=== PATIENT | female | born 1935 | race Caucasian/White ===

== ENCOUNTER 2016-09-28 19:56 | Observation (INO) | payer OTHER, BC ==
[2016-09-28 20:19] VITALS: BMI 35.5
[2016-09-28 23:20] LABS: BASOPHIL 0.5 % (0-2.0); EOSINOPHIL 0.9 % (0-4.5); MCH 29.8 pg (25.7-33.7); MCHC 33.1 g/dl (32.0-36.0); MEAN CELL VOLUME 90.1 fl (80-96); MEAN PLT VOLUME 8.7 fl (7.5-11.1); NEUTROPHILS 54.6 % (42.8-82.8); PLATELET COUNT 139 K/MM3 (134-434); RDW 14.5 % (11.6-15.6); WHITE BLOOD COUNT 6.1 K/mm3 (4.0-10.0)
--- NOTE | 2016-09-28 23:33 | PDOC ---
History of Present Illness - General Chief Complaint: Edema Stated Complaint: BLOOD CLOT ON RT LEG Time Seen by Provider: 09/28/16 22:30 - History of Present Illness Initial Comments: 09/28/16 23:28 CHIEF COMPLAINT: blood clot to R leg HISTORY OF PRESENT ILLNESS: 80 yo F with hx of Factor V Leiden deficiency, R popliteal and posterior tibial DVTs (2016), and breast cancer (10 years ago), presents to ED with swelling to legs bilaterally x 1 week, worse on the R leg. Patient reports that she has been "working on my brother's house after he recently " and over the last week she has noticed increased swelling to both her legs with pain. She saw her PCP Dr. Elicia Lacey and is scheduled for dopplers of both legs tomorrow but "I spoke to my daughter who is a nurse and she told me to come to the ER right away because I could from this." She denies any chest pain, SOB, or palpitations at this time. She denies any recent travel or prolonged periods of sitting, denies smoking hx or hormone therapy. No recent travel or sick contacts. PAST MEDICAL HISTORY: as per HPI FAMILY HISTORY: Denies SOCIAL HISTORY: Denies tobacco, alcohol, illicit drug use. SURGICAL HISTORY: Denies ALLERGIES: Vicodin REVIEW OF SYSTEMS General/Constitutional: Denies fever or chills. Denies weakness, weight change. HEENT: Denies change in vision. Denies ear pain or discharge. Denies sore throat. Cardiovascular: Denies chest pain or shortness of breath. Respiratory: Denies cough, wheezing, or hemoptysis. Gastrointestinal: Denies nausea, vomiting, diarrhea or constipation. Denies rectal bleeding. Genitourinary: Denies dysuria, frequency, or change in urination. Musculoskeletal: Worsening swelling to both legs. Skin and breasts: Denies rash or easy bruising. PHYSICAL EXAM General Appearance: Well-appearing, appropriately dressed. No apparent distress. HEENT: EOMI, PERRLA, normal ENT inspection, normal voice, TMs normal, pharynx normal. No conjunctival pallor. No photophobia, scleral icterus. Respiratory/Chest: Lungs CTAB. Cardiovascular: RRR. S1, S2. Vascular Pulses: Dorsalis-Pedis (R): 2+, Dorsalis-Pedis (L): 2+ Gastrointestinal/Abdominal: Normal bowel sounds. Abdomen soft, non-distended. No tenderness or rebound tenderness. No organomegaly, pulsatile mass, guarding , hernia, hepatomegaly, splenomegaly. Lymphatic: No adenopathy, tenderness. Musculoskeletal/Extremities: Erythema, edema, tenderness to legs bilaterally. + Benji's sign to R calf. FROM of all extremities, normal capillary refill. Pelvis Stable. No CVA tenderness. Integumentary: Appropriate color, dry, warm. No cyanosis, erythema, jaundice or rash Neurologic: stroke program coordinator II-XII intact. Fully oriented, alert. Appropriate mood/affect. Motor strength 5/5. No appreciable EOM palsy, facial droop or sensory deficit. Past History - Past Medical History Allergies/Adverse Reactions: Allergies Allergy/AdvReac Type Severity Reaction Status Date / Time acetaminophen [From Vicodin] AdvReac Verified 09/28/16 20:14 hydrocodone bitartrate AdvReac Verified 09/28/16 20:14 [From Vicodin] Home Medications: Ambulatory Orders Latanoprost 0.005% Eye Drops [Xalatan 0.005% Eye Drops -] 1 drop OU HS 10/20/15 Levothyroxine [Synthroid -] 100 mcg PO DAILY 10/20/15 Valsartan [Diovan] 320 mg PO DAILY 10/20/15 Atorvastatin Ca [Lipitor] 20 mg PO HS #30 tablet 10/25/15 Metoprolol Tartrate [Lopressor -] 25 mg PO BID #60 tablet 10/25/15 Warfarin Na [Coumadin -] 3 mg PO DAILY@1800 09/28/16 Anemia: No Asthma: No Cancer: Yes (breast ca. s/p radiation) Cardiac Disorders: No CVA: No COPD: No CHF: No Dementia: No Diabetes: No GI Disorders: No Disorders: No HTN: Yes Hypercholesterolemia: No Liver Disease: No Seizures: No Thyroid Disease: Yes (hypothyroid) - Surgical History Abdominal Surgery: No Appendectomy: No Cardiac Surgery: No Cholecystectomy: Yes Lung Surgery: No Neurologic Surgery: No Orthopedic Surgery: No - Psycho/Social/Smoking Cessation Hx Suicidal Ideation: No Smoking History: Never smoked Have you smoked in the past 12 months: No Information on smoking cessation initiated: No Hx Alcohol Use: No Drug/Substance Use Hx: No Hx Substance Use Treatment: No *Physical Exam - Vital Signs Last Vital Signs Temp Pulse Resp BP Pulse Ox 98.4 F 80 18 152/84 96 09/28/16 20:15 09/28/16 20:15 09/28/16 20:15 09/28/16 20:15 09/28/16 20:15 ED Treatment Course - LABORATORY CBC & Chemistry Diagram: 09/28/16 23:05 09/28/16 23:05 - ADDITIONAL ORDERS Additional order review: 09/28/16 23:05 RBC 4.13 MCV 90.1 MCHC 33.1 RDW 14.5 MPV 8.7 Neutrophils % 54.6 Lymphocytes % 35.3 Monocytes % 8.7 Eosinophils % 0.9 Basophils % 0.5 - RADIOLOGY Radiology Studies Ordered: Category Date Time Status DUPLEX VASCUL US-2LEGS [US] Stat Ultrasound 09/28/16 22:51 Ordered Medical Decision Making - Medical Decision Making 09/28/16 23:32 80 yo F with hx of Factor V Leiden deficiency, R popliteal and posterior tibial DVTs (2016), and breast cancer (10 years ago), presents to ED with swelling to legs bilaterally x 1 week, worse on the R leg. -EKG -Duplex US b/l legs -CBC, CMP, PT/INR, BNP *DC/Admit/Observation/Transfer Diagnosis at time of Disposition: Right leg DVT Qualifiers: Affected thrombotic vein of extremity: popliteal Chronicity: chronic Qualified Code(s): I82.531 - Chronic embolism and thrombosis of right popliteal vein - Discharge Dispostion Admit: Yes - Referrals Referrals: Elicia Lacey MD [Primary Care Provider] - - Patient Instructions Printed Discharge Instructions: DI for Deep Vein Thrombosis Additional Instructions: Please follow up with Dr. Lacey tomorrow and show him a copy of your ultrasound results. If you experience any shortness of breath, chest pain, palpitations, or any new or worsening symptoms, please return to the ER immediately.
[2016-09-28 23:46] LABS: INR 4.84 (0.82-1.09)
[2016-09-28 23:54] LABS: ALBUMIN 3.2 g/dl (3.4-5.0); ALK PHOS 75 U/L (45-117); ANION GAP 10 (8-16); BILIRUBIN,TOTAL 0.5 mg/dL (0.2-1.0); CALCIUM 8.8 mg/dL (8.5-10.1); CO2 28 mmol/L (21-32); CREATININE 0.9 mg/dL (0.55-1.02); GLUCOSE,RANDOM 109 mg/dL (74-106); SGOT/AST 26 U/L (15-37); SGPT/ALT 29 U/L (12-78); TOT PROT 6.3 g/dl (6.4-8.2)
--- NOTE | 2016-09-29 08:01 | HP ---
Admitting History and Physical - Admission History of Present Illness: 80 yo F with hx of Factor V Leiden deficiency, R popliteal and posterior tibial DVTs (2016), and breast cancer (10 years ago), presents to ED with swelling to legs bilaterally x 1 week, worse on the R leg. Patient reports that she has been "working on my brother's house after he recently " and over the last week she has noticed increased swelling to both her legs with pain. She denies any chest pain, SOB, or palpitations at this time. She denies any recent travel or prolonged periods of sitting, denies smoking hx or hormone therapy. - Past Medical History Cardiovascular: Yes: HTN, Hyperlipdemia ...: No Heme/Onc: Yes: Hypercoaguable State, Other (DVT) Endocrine: Yes: Hypothyroidism - Smoking History Smoking history: Never smoked Have you smoked in the past 12 months: No - Alcohol/Substance Use Hx Alcohol Use: No Home Medications - Allergies Allergies/Adverse Reactions: Allergies Allergy/AdvReac Type Severity Reaction Status Date / Time acetaminophen [From Vicodin] AdvReac Verified 09/28/16 20:14 hydrocodone bitartrate AdvReac Verified 09/28/16 20:14 [From Vicodin] seafood Allergy Uncoded 09/29/16 08:13 - Home Medications Home Medications: Ambulatory Orders Latanoprost 0.005% Eye Drops [Xalatan 0.005% Eye Drops -] 1 drop OU HS 10/20/15 Levothyroxine [Synthroid -] 100 mcg PO DAILY 10/20/15 Valsartan [Diovan] 320 mg PO DAILY 10/20/15 Atorvastatin Ca [Lipitor] 20 mg PO HS #30 tablet 10/25/15 Metoprolol Tartrate [Lopressor -] 25 mg PO BID #60 tablet 10/25/15 Warfarin Na [Coumadin -] 3 mg PO DAILY@1800 09/28/16 Review of Systems - Review of Systems Cardiovascular: denies: Chest Pain Respiratory: denies: SOB Gastrointestinal: reports: No Symptoms Genitourinary: reports: No Symptoms Musculoskeletal: reports: Extremity Pain Physical Examination Vital Signs: Vital Signs Temperature 97.8 F 09/29/16 05:45 Pulse Rate 70 09/29/16 05:45 Respiratory Rate 18 09/29/16 05:45 Blood Pressure 152/89 09/29/16 05:45 O2 Sat by Pulse Oximetry (%) 95 09/29/16 05:00 Cardiovascular: Yes: Regular Rate and Rhythm Respiratory: Yes: Regular, CTA Bilaterally Gastrointestinal: Yes: Normal Bowel Sounds, Soft Edema: Yes Edema: LLE: 1+, RLE: 2+ Neurological: Yes: Alert, Oriented Imaging - Results Ultrasound: Report Reviewed Problem List - Problems (1) Right leg DVT Assessment/Plan: ON COUMADIN HEM AND VASCULAR CONSULT DUE TO PAIN Code(s): I82.401 - ACUTE EMBOLISM AND THOMBOS UNSP DEEP VEINS OF R LOW EXTREM Qualifiers: Affected thrombotic vein of extremity: popliteal Chronicity: chronic Qualified Code(s): I82.531 - Chronic embolism and thrombosis of right popliteal vein (2) HTN (hypertension) Assessment/Plan: CONTROLLED Code(s): I10 - ESSENTIAL (PRIMARY) HYPERTENSION Qualifiers: Hypertension type: essential hypertension Qualified Code(s): I10 - Essential (primary) hypertension (3) Hypercoagulable state Assessment/Plan: ABOVE Code(s): D68.59 - OTHER PRIMARY THROMBOPHILIA (4) Edema Assessment/Plan: LASIX ECHO Code(s): R60.9 - EDEMA, UNSPECIFIED
[2016-09-29] MEDS ORDERED: LEVOTHYROXINE NA 100 MCG TABLET (FP) PO SCH (08:30)
[2016-09-29 08:57] LABS: BASOPHIL 0.5 % (0-2.0); MCHC 33.1 g/dl (32.0-36.0); MEAN CELL VOLUME 90.6 fl (80-96); MEAN PLT VOLUME 9.5 fl (7.5-11.1); NEUTROPHILS 55.1 % (42.8-82.8); PLATELET COUNT 166 K/MM3 (134-434); RDW 14.5 % (11.6-15.6); WHITE BLOOD COUNT 6.5 K/mm3 (4.0-10.0)
[2016-09-29 09:50] LABS: INR 3.46 (0.82-1.09)
[2016-09-29 09:56] LABS: C-REACTIVE PROTEIN < 0.3 MG/DL (0.00-0.3)
[2016-09-29] MEDS ORDERED: VALSARTAN 160 MG TABLET (UD) PO SCH (10:00)
[2016-09-29] MEDS ORDERED: METOPROLOL TARTRATE 25 MG TABLET (FP) PO SCH (10:00)
[2016-09-29] MEDS ORDERED: FUROSEMIDE 40 MG/4 ML INJECTABLE VIAL IVPB SCH (10:00)
--- NOTE | 2016-09-29 11:32 | EKG ---
Test Reason : Blood Pressure : / mmHG Vent. Rate : 068 BPM Atrial Rate : 068 BPM P-R Int : 146 ms QRS Dur : 084 ms QT Int : 394 ms P-R-T Axes : 103 032 032 degrees QTc Int : 418 ms NORMAL SINUS RHYTHM WITH SINUS ARRHYTHMIA NORMAL ECG WHEN COMPARED WITH ECG OF 20-OCT-2015 22:33, PREMATURE ATRIAL COMPLEXES ARE NO LONGER PRESENT NONSPECIFIC T WAVE ABNORMALITY NO LONGER EVIDENT IN LATERAL LEADS Confirmed by SARABJIT JAIN, EMERY ([id number]) on 09/29/2016 11:32:36 AM Referred By: Confirmed By:EMEYR WHIPPLE MD
[2016-09-29 15:05] VITALS: BP 132/63; PULSE 90; TEMP 98.4
--- NOTE | 2016-09-29 16:58 | CONSULT ---
Consult - History of Present Illness History of Present Illness: 80 year old female with Factor V Leiden and history of DVT of right leg in October 2015. She has been on Coumadin since. recent INR > 4. She noted increased swelling in right leg recently and became concerned. No pain. - History Source History Provided By: Patient, Medical Record Limitations to Obtaining History: No Limitations - Past Medical History Cardio/Vascular: Yes: HTN, Hyperlipdemia ...: No Endocrine: Yes: Hypothyroidism - Alcohol/Substance Use Hx Alcohol Use: No - Smoking History Smoking history: Never smoked Have you smoked in the past 12 months: No Home Medications - Allergies Allergies/Adverse Reactions: Allergies Allergy/AdvReac Type Severity Reaction Status Date / Time acetaminophen [From Vicodin] AdvReac Verified 09/28/16 20:14 hydrocodone bitartrate AdvReac Verified 09/28/16 20:14 [From Vicodin] seafood Allergy Uncoded 09/29/16 08:13 - Home Medications Home Medications: Ambulatory Orders Latanoprost 0.005% Eye Drops [Xalatan 0.005% Eye Drops -] 1 drop OU HS 10/20/15 Levothyroxine [Synthroid -] 100 mcg PO DAILY 10/20/15 Valsartan [Diovan] 320 mg PO DAILY 10/20/15 Atorvastatin Ca [Lipitor] 20 mg PO HS #30 tablet 10/25/15 Metoprolol Tartrate [Lopressor -] 25 mg PO BID #60 tablet 10/25/15 Furosemide [Lasix -] 40 mg PO DAILY #30 tablet 09/29/16 Warfarin Na [Coumadin -] 3 mg PO DAILY@1800 tablet 09/29/16 Family Disease History - Family Disease History Family Disease History: Other: Brother (DVT, PE Factor V Leiden) Physical Exam Vital Signs: Vital Signs Temperature 98.4 F 09/29/16 15:01 Pulse Rate 90 09/29/16 15:01 Respiratory Rate 16 09/29/16 15:01 Blood Pressure 132/63 09/29/16 15:01 O2 Sat by Pulse Oximetry (%) 100 09/29/16 15:29 Constitutional: Yes: No Distress Eyes: Yes: WNL HENT: Yes: WNL Neck: Yes: Supple Cardiovascular: Yes: Regular Rate and Rhythm Respiratory: Yes: Regular Gastrointestinal: Yes: Soft Edema: Yes Edema: RLE: 2+ (Non-pitting) Labs: CBC, BMP 09/29/16 08:11 Imaging - Results Ultrasound: Image Reviewed (Old scar right popliteal vein from DVT) Problem List - Problems (1) Right leg DVT Assessment/Plan: Chronic edema right leg which is worsened with extra activity and hot weather. Post-phlebitic changes seen on Duplex in right popliteal veins. Rec: Continue warfarin for hypercoagulable state. I have prescribed Class II support hose. Leg elevation. 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
[2016-09-29] MEDS ORDERED: WARFARIN NA 3 MG TABLET PO SCH (18:00)
[2016-09-29] MEDS ORDERED: LATANOPROST 0.005% OPHTH SOLN 2.5ML BOTTLE OU SCH (22:00)
[2016-09-29] MEDS ORDERED: ATORVASTATIN CA 20 MG TABLET (FP) PO SCH (22:00)
[2016-09-30] MEDS ORDERED: FUROSEMIDE 40 MG TABLET (FP) PO SCH (10:00)
== END 2016-09-29 18:58 | disposition home health service (06) ==
LOC: JER 19:56 → INTOOBSV 09-29 02:16 → JERBED 09-29 02:16 → UNDOADMOB 09-29 02:16 → JERBED 09-29 02:41 → UNDOADMIN 09-29 02:41 → J8W 09-29 04:46 → JERBED 09-29 04:46 → J8W 09-29 07:28
PROVIDERS: ADMIT Family Medicine; ATTEND Family Medicine
PROC: 3E033GC Introduction of Other Therapeutic Substance into Peripheral Vein, Percutaneous Approach (ICD-10-PCS; principal; 2016-09-29)
DX: I82.531 Chronic embolism and thrombosis of right popliteal vein (principal); D68.59 Other primary thrombophilia; R60.9 Edema, unspecified; I10 Essential (primary) hypertension; D68.2 Hereditary deficiency of other clotting factors; D68.51 Activated protein C resistance
CPT/HCPCS: 36415; 71020-TC; 80053; 83880; 85025; 85610; 85651; 86140; 93005; 93010; 93306-TC; 93970-TC; 99283-25; G0378

== ENCOUNTER 2021-02-15 04:58 | Day surgery (SDC) | payer OTHER ==
[2021-02-12 16:12] VITALS: BMI 35.4
[2021-02-15 14:00] VITALS: TEMP 98
[2021-02-15 14:40] VITALS: PULSE 72
[2021-02-15 14:41] VITALS: BP 144/75
== END 2021-02-15 14:55 | disposition home or self-care (01) ==
LOC: JASU-ENDO 04:58
PROVIDERS: ATTEND Internal Medicine Cardiovascular Disease
PROC: 5A2204Z Restoration of Cardiac Rhythm, Single (ICD-10-PCS; principal; 2021-02-15 13:51)
DX: I48.91 Unspecified atrial fibrillation (principal); I10 Essential (primary) hypertension; E11.9 Type 2 diabetes mellitus without complications; I25.10 Atherosclerotic heart disease of native coronary artery without angina pectoris
CPT/HCPCS: 92960; 93005; 93010

== ENCOUNTER 2021-09-21 13:13 | Emergency (ER) | payer OTHER ==
[2021-09-21 13:40] VITALS: TEMP 98; BMI 36.8
[2021-09-21] MEDS ORDERED: DIPHTH,PERTUSS(ACELL),TET 0.5 ML DISP.SYRIN IM ONE ×2 (14:30→17:36)
[2021-09-21] MEDS ORDERED: ACETAMINOPHEN 500 MG TABLET (FP) PO ONE (14:30)
[2021-09-21] MEDS ORDERED: CEFTRIAXONE 1 GM in DEXTROSE 5%-WATER - 100 ML IVPB ONE (14:58)
[2021-09-21] MEDS ORDERED: AZITHROMYCIN IVPB 500 MG in DEXTROSE 5%-WATER - 250 ML IVPB ONE (14:58)
[2021-09-21] MEDS ORDERED: LIDOCAINE 1.5%-EPINEPHRINE 1:200,000/PF 30 ML VIAL IJ ONE (16:25)
[2021-09-21 16:32] LABS: INR 1.99 (0.83-1.09); PROTHROMBIN TIME (PATIENT) 23.1 SEC (9.7-13.0)
[2021-09-21] MEDS ORDERED: LIDOCAINE 1%/EPI 1:100000 (20 ML MULTI DOSE VIAL) ONE (16:38)
[2021-09-21 16:43] LABS: CALCIUM 9.5 mg/dL (8.5-10.1)
[2021-09-21 16:44] LABS: ALBUMIN 3.5 g/dl (3.4-5.0); BLOOD UREA NITROGEN 21.3 mg/dL (7-18)
[2021-09-21 16:47] LABS: CREATININE 1.1 mg/dL (0.55-1.3); PHOSPHOROUS 2.3 mg/dL (2.5-4.9)
[2021-09-21 16:48] LABS: BILIRUBIN,TOTAL 0.6 mg/dL (0.2-1)
[2021-09-21 16:49] LABS: TOT PROT 6.5 g/dl (6.4-8.2)
[2021-09-21] MEDS ORDERED: ACETAMINOPHEN 325 MG TABLET (FP) ONE (17:36)
[2021-09-21] MEDS ORDERED: AZITHROMYCIN IVPB 500 MG/250 ML BAG IVPB ONE (17:36)
[2021-09-21] MEDS ORDERED: CEFTRIAXONE 1 GM/50 ML BAG ONE (17:36)
[2021-09-21 18:30] VITALS: BP 152/64; PULSE 89
== END 2021-09-21 18:57 | disposition home or self-care (01) ==
LOC: JER 13:13
PROC: 0HQ1XZZ Repair Face Skin, External Approach (ICD-10-PCS; principal; 2021-09-21)
PROC: 3E033GC Introduction of Other Therapeutic Substance into Peripheral Vein, Percutaneous Approach (ICD-10-PCS; 2021-09-21)
PROC: 3E0234Z Introduction of Serum, Toxoid and Vaccine into Muscle, Percutaneous Approach (ICD-10-PCS; 2021-09-21)
DX: S01.81XA Laceration without foreign body of other part of head, initial encounter (principal); W19.XXXA Unspecified fall, initial encounter
CPT/HCPCS: 12013; 36415; 70450-TC; 71045-TC-FY; 72125-TC; 73521-TC-FY; 73560-TC-LT-FY; 73560-TC-RT-FY; 80053; 83735; 84100; 84484; 85610; 90471; 90715; 93005; 93010; 96365; 96375; 99285-25

== ENCOUNTER 2021-09-29 12:57 | Emergency (ER) | payer OTHER ==
[2021-09-29 13:40] VITALS: BP 158/68; PULSE 74; TEMP 97.9; BMI 35.6
== END 2021-09-29 15:56 | disposition home or self-care (01) ==
LOC: JER 12:57 → JERFT 12:57
DX: Z48.02 Encounter for removal of sutures (principal)
CPT/HCPCS: 99281-25